=== PATIENT | female | born 1990 | race African-American/Black ===

== ENCOUNTER 2018-02-25 12:59 | Emergency (ER) | payer BC, OTHER, SELFPAY ==
[2018-02-25] MEDS ORDERED: Adacel (T-DAP) 0.5 ML VIAL ONE (13:18)
[2018-02-25] MEDS ORDERED: Bacitracin Zinc 1 Packet ONE (13:29)
== END 2018-02-25 13:31 | disposition home or self-care (01) ==
LOC: BURERS 12:59
DX: S81.851A Open bite, right lower leg, initial encounter (principal); J45.909 Unspecified asthma, uncomplicated; W54.0XXA Bitten by dog, initial encounter
CPT/HCPCS: 90471; 90715